=== PATIENT | male | born 1950 | race African-American/Black ===

== ENCOUNTER 2017-05-16 07:10 | Emergency (ER) | payer OTHER ==
[2017-05-16 07:17] VITALS: TEMP 98.9; BMI 32.8
[2017-05-16] MEDS ORDERED: NAPROXEN 500 MG TABLET (FP) PO ONE (07:51)
--- NOTE | 2017-05-16 07:51 | PDOC ---
History of Present Illness - General Chief Complaint: Pain Stated Complaint: TESTICULAR PAIN Time Seen by Provider: 05/16/17 07:25 History Source: Patient - History of Present Illness Initial Comments: 05/16/17 07:52 67M with pmh of HTN presents with right-sided testicular pain for 2 days and slight burn on urination. Patient complains he feels a lump on the right side. Any contact with scrotum increases the pain. Unprotected sexual activity with , no other. Increased frequency of urination. No hematuria. Denies similar events in the past. 05/16/17 07:59 Past History - Past Medical History Allergies/Adverse Reactions: Allergies Allergy/AdvReac Type Severity Reaction Status Date / Time No Known Allergies Allergy Verified 05/16/17 07:17 Home Medications: Ambulatory Orders Meclizine HCl [Antivert -] 12.5 mg PO QID PRN #28 tablet 02/23/15 Unobtainable 02/23/15 Levofloxacin [Levaquin -] 500 mg PO DAILY #10 tablet 05/16/17 Diabetes: Yes (BORDERLINE) HTN: Yes Hypercholesterolemia: Yes - Psycho/Social/Smoking Cessation Hx Anxiety: No Suicidal Ideation: No Smoking History: Never smoked Information on smoking cessation initiated: No Hx Alcohol Use: No Drug/Substance Use Hx: No Substance Use Type: None Review of Systems - Review of Systems Constitutional: No: Symptoms Reported HEENTM: No: Symptoms Reported Respiratory: No: Symptoms reported Cardiac (ROS): No: Symptoms Reported ABD/GI: No: Symptoms Reported : Yes: See HPI, Urgency, Testicular Mass, Testicular Swelling *Physical Exam - Vital Signs Last Vital Signs Temp Pulse Resp BP Pulse Ox 98.9 F 70 17 158/85 100 05/16/17 07:15 05/16/17 07:15 05/16/17 07:15 05/16/17 07:15 05/16/17 07:15 - Physical Exam General Appearance: Yes: Nourished, Appropriately Dressed. No: Apparent Distress HEENT: positive: EOMI, RICKY, Normal ENT Inspection Neck: negative: Tender Respiratory/Chest: positive: Lungs Clear, Normal Breath Sounds. negative: Chest Tender Cardiovascular: positive: Regular Rhythm, Regular Rate, S1, S2 Gastrointestinal/Abdominal: positive: Normal Bowel Sounds. negative: Tender Male Genitalia: positive: testicular tenderness (Enlarged scrotal sac). negative: discharge, testicular mass (ambiguous), hematuria ED Treatment Course - LABORATORY CBC & Chemistry Diagram: 05/16/17 07:54 05/16/17 07:54 Medical Decision Making - Medical Decision Making 05/16/17 08:02 67M with pmh of HTN presents with testicular pain and swelling for the past 2 days. orchitis vs epididimitis vs torsion Scrotum u/s pending UA + cultures CBC CMP 05/16/17 09:43 U/S positive for orchitis and Epididimytis . PAtient started on levoquin PO + Rx outpatient *DC/Admit/Observation/Transfer Diagnosis at time of Disposition: Orchitis and epididymitis - Discharge Dispostion Disposition: HOME Admit: No - Prescriptions Prescriptions: Levofloxacin [Levaquin -] 500 mg PO DAILY #10 tablet - Referrals Referrals: Dennis Hitchcock MD [Primary Care Provider] - Reagan Marie MD [Staff Physician] - - Patient Instructions Printed Discharge Instructions: DI for Epididymitis Additional Instructions: Take 600mg ibuprofen for pain when needed Take one antibiotic (Levofloxacin) each day for 10 days. Follow up with Dr. Marie.
[2017-05-16] MEDS ORDERED: NAPROXEN 500 MG TABLET (FP) ONE (07:55)
--- NOTE | 2017-05-16 08:18 | PDOC ---
Attending Attestation - Resident Resident Name: Devyn Toscano - ED Attending Attestation I have performed the following: I have examined & evaluated the patient, The case was reviewed & discussed with the resident, I agree w/resident's findings & plan, Exceptions are as noted - HPI HPI: 05/16/17 09:20 67 year old male c/ history of HTN p/w R sided testicular pain x 2 pains. Reports constant with dysuria. Reports has not been sexually active in a while and only sexually active with his . Denies hx of STDS. Report pain is constant and relieved with NSAIDS. Denies fevers, chills. - Physicial Exam PE: 05/16/17 09:50 GENERAL: Awake, alert, and fully oriented, in no acute distress. HEAD: No signs of trauma EYES: PERRLA, EOMI, sclera anicteric, conjunctiva clear ENT: Auricles normal inspection, hearing grossly normal, nares patent, oropharynx clear without exudates. NECK: Normal ROM, supple, no lymphadenopathy, JVD, or masses LUNGS: Breath sounds equal, clear to auscultation bilaterally. No wheezes, and no crackles HEART: Regular rate and rhythm, normal S1 and S2, no murmurs, rubs or gallops ABDOMEN: Soft, nontender, normoactive bowel sounds. No guarding, no rebound. No masses : Uncircumsized penis. R testicle tender to palpation. Tender at the epidydmitis. EXTREMITIES: Normal range of motion, no edema. No clubbing or cyanosis. No cords, erythema, or tenderness NEUROLOGICAL: Cranial nerves II through XII grossly intact. Normal speech, normal gait SKIN: Warm, Dry, normal turgor, no rashes or lesions noted. - Medical Decision Making 05/16/17 09:52 Vital Signs Temp Pulse Resp BP Pulse Ox 98.9 F 70 17 158/85 100 05/16/17 07:15 05/16/17 07:15 05/16/17 07:15 05/16/17 07:15 05/16/17 07:15 67 year old male p/w R testicular pain. Ultrasound demonstrates epidydmitis and orchitis. Levaquin 500 mg PO x 10 days. NSAIDS Follow up with urology.
[2017-05-16 08:31] LABS: BASOPHIL 0.6 % (0-2.0); EOSINOPHIL 0.9 % (0-4.5); MCH 30.2 pg (25.7-33.7); MCHC 32.6 g/dl (32.0-35.9); MEAN CELL VOLUME 92.6 fl (80-96); MEAN PLT VOLUME 8.4 fl (7.5-11.1); NEUTROPHILS 59.4 % (42.8-82.8); PLATELET COUNT 241 K/MM3 (134-434); RDW 13.5 % (11.9-15.9); WHITE BLOOD COUNT 10.5 K/mm3 (4.0-10.0)
[2017-05-16 08:51] LABS: ALBUMIN 3.5 g/dl (3.4-5.0); ANION GAP 5 (8-16); BILIRUBIN,TOTAL 0.5 mg/dL (0.2-1.0); CALCIUM 10.1 mg/dL (8.5-10.1); CO2 30 mmol/L (21-32); CREATININE 0.7 mg/dL (0.7-1.3); GLUCOSE,RANDOM 104 mg/dL (74-106); SGPT/ALT 24 U/L (12-78); TOT PROT 7.3 g/dl (6.4-8.2)
[2017-05-16 08:52] LABS: ALK PHOS 76 U/L (45-117)
[2017-05-16 08:53] LABS: SGOT/AST 22 U/L (15-37)
[2017-05-16 09:38] LABS: PH,URINE 6.5 (5.0-8.0); URINE APPEARANCE CLEAR; URINE BILIRUBIN NEGATIVE (NEGATIVE); URINE BLOOD 2+ (NEGATIVE); URINE COLOR YELLOW; URINE GLUCOSE (UA) NEGATIVE (NEGATIVE); URINE KETONE NEGATIVE (NEGATIVE); URINE NITRITE NEGATIVE (NEGATIVE); URINE PROTEIN NEGATIVE (NEGATIVE); URINE UROBILINOGEN 0.2 mg/dL (0.2-1.0)
[2017-05-16] MEDS ORDERED: LEVOFLOXACIN 500 MG TABLET (FP) PO ONE (09:39)
[2017-05-16 10:08] LABS: URINE LEUK ESTERASE 3+ (NEGATIVE)
[2017-05-16 10:14] LABS: URINE BACTERIA RARE /hpf (NONE SEEN); URINE MUCUS RARE; URINE RBC 21 /hpf (0-3); URINE WBC 30 /hpf (3-5)
[2017-05-16] MEDS ORDERED: LEVOFLOXACIN 500 MG TABLET (FP) ONE (10:17)
[2017-05-16 10:28] VITALS: BP 150/80; PULSE 82
== END 2017-05-16 10:28 | disposition home or self-care (01) ==
LOC: JER 07:10
DX: N45.3 Epididymo-orchitis (principal); I10 Essential (primary) hypertension; E78.00 Pure hypercholesterolemia, unspecified
CPT/HCPCS: 36415; 76870-TC; 80053; 81003; 81015; 85025; 87086; 87186; 99282-25

== ENCOUNTER 2020-06-12 05:00 | Day surgery (SDC) | payer OTHER ==
[2020-06-11 18:05] VITALS: BMI 31.4
--- NOTE | 2020-06-12 09:57 | HP ---
[facility] - Chief Complaint Chief Complaint: right knee pain - Past Medical History Allergies/Adverse Reactions: Allergies Allergy/AdvReac Type Severity Reaction Status Date / Time No Known Allergies Allergy Verified 06/11/20 17:57 - Current Medications Current Medications: Home Medications Medication Instructions Recorded Acetaminophen [Tylenol] 650 mg PO PRN 06/11/20 Amlodipine Besylate 10 mg PO DAILY 06/11/20 Atorvastatin Calcium 20 mg PO HS 06/11/20 Losartan/Hydrochlorothiazide 1 each PO DAILY 06/11/20 [Losartan-Hctz 100-12.5 mg Tab] Tolterodine Tartrate 2 mg PO DAILY 06/11/20 Oxycodone HCl/Acetaminophen 1 tab PO Q6H #15 tablet MDD 4 06/12/20 [Percocet 5-325 mg Tablet] [facility] Physical Exam - Physical Examination General Appearance: Well Nourished, Well Developed, Alert & Oriented x3 ENT: Clear Lung: Normal air movement Extremities: Other (right knee- + swelling, + ttp, decr rom, + mcmurrays, nvi) Neurological: Intact, Alert, Oriented Satellite Impression/Plan - Impression/Plan Impression: right knee internal derangement Operative Procedure: right knee arthroscopy Date to be Performed: 06/12/20
[2020-06-12] MEDS ORDERED: PROPOFOL 20 ML ONE (12:28)
[2020-06-12] MEDS ORDERED: MIDAZOLAM HCL 2 MG/2 ML SINGLE DOSE VIAL ONE (12:28)
[2020-06-12] MEDS ORDERED: LIDOCAINE 1%/EPI 1:100000 (20 ML MULTI DOSE VIAL) ONE ×2 (12:36→13:03)
[2020-06-12] MEDS ORDERED: KETOROLAC TROMETHAMINE 30 MG/1 ML VIAL ONE (13:11)
[2020-06-12] MEDS ORDERED: LIDOCAINE 1%/EPI 1:100000 (20 ML MULTI DOSE VIAL) INF ONE (13:18)
[2020-06-12] MEDS ORDERED: BUPIVACAINE HCL/PF 0.5% (5 MG/ML) 30 ML VIAL IJ ONE (13:19)
--- NOTE | 2020-06-12 13:50 | OP ---
Operative Note - Note: Operative Date: 06/12/20 ([facility]) Pre-Operative Diagnosis: right knee internal derangement Operation: right knee arthroscopy with PMM, debridement chondroplasty Post-Operative Diagnosis: Same as Pre-op Surgeon: Lopez Davis Anesthesia: General, Local Specimens Removed: shavings Estimated Blood Loss (mls): 5
[2020-06-12 15:18] VITALS: TEMP 97.6
[2020-06-12 15:34] VITALS: BP 130/74; PULSE 70
--- NOTE | 2020-06-12 21:02 | OP ---
DATE OF OPERATION: 06/12/2020 PREOPERATIVE DIAGNOSIS: Internal derangement, right knee. POSTOPERATIVE DIAGNOSIS: Internal derangement, right knee. PROCEDURE: Arthroscopy, right knee partial median meniscectomy, and chondroplasty of the patella. SURGICAL ATTENDING: Lopez Davis MD ANESTHESIA: General with LMA. CLOSURE: 4-0 nylon. COMPLICATIONS: None. CONDITION: Recovery in stable condition. DESCRIPTION OF OPERATIVE PROCEDURE: Patient taken to the operating room on June 12, 2020. General anesthesia with LMA was administered per the anesthesiologist. Right lower extremity was prepped and draped in the usual sterile fashion. Medial and lateral infrapatellar portal sites were infiltrated with 1% Xylocaine with epinephrine. Both portals were then made with a 15 blade followed by a blunt trocar. The scope trocar was placed up into the suprapatellar pouch. The knee was drained of about 40 mL of clear fluid. The knee was then inflated with a cocktail of 10 mL of 1% Xylocaine, 10 mL of 0.5% Marcaine, and 20 mL of arthroscopic saline. After allowing the anesthetic to work, the procedure was then performed. The pouch was visualized to be clean. The medial and lateral gutters were visualized to be clean. The undersurface of the patella had some "crab meat" which was debrided using the shaver as did the trochlea and was shaved as well. With valgus stress on the knee, the medial compartment was entered. The medial meniscus was found to have a tear of its posterior horn. This was debrided back to smooth and stable meniscal tissue with arthroscopic bitters and shaver. The medial femoral condyle was run and found to be basically intact as was the medial tibial plateau. There was 1 small central area in the medial femoral condyle at about 50 degrees that had no cartilage down to bone, but was left alone. At 90 degrees, the ACL was visualized and probed, found to be intact. In the figure-4 position, the lateral compartment was entered. The lateral meniscus visualized and found to be intact. Lateral femoral condyle was run and found to be intact as was the lateral tibial plateau. Knee was irrigated with copious amounts of irrigation. The fluid was drained from the knee. Portals were closed, and 20 mL of 0.5% Marcaine were infused into the knee for postoperative analgesia. Sterile pressure dressing was placed over the knee. Patient awakened from anesthesia and transferred to Recovery in stable condition. No complications. Estimated blood loss: Negligible. Janell [id number]
--- NOTE | 2020-06-19 17:48 | PATH ---
Surgical Pathology Report Patient Name: KATHIE WONG Med. Rec. #: [id number] /Age/Gender: 1950 (Age: 70) / M Account: [id number] Location: [facility] SURGICAL Taken: 06/12/2020 Received: 06/13/2020 Reported: 06/19/2020 Physicians: Lopez Davis M.D. Specimen(s) Received RIGHT KNEE SHAVINGS Clinical History Right knee tear Final Diagnosis KNEE SHAVINGS, RIGHT, ARTHROSCOPY: FRAGMENTS OF CARTILAGE, DENSE FIBROCONNECTIVE TISSUE, ADIPOSE TISSUE, AND REACTIVE SYNOVIUM. Electronically Signed Mary Kay Vega M.D. Gross Description Received in formalin labeled "right knee shavings," is a 3.3 x 2.6 x 0.3 cm aggregate of arce-yellow soft tissue fragments admixed with blood clot. The formalin is filtered and the specimen is entirely submitted in one cassette. 06/14/2020 [facility]06/14/2020
== END 2020-06-12 15:43 | disposition home or self-care (01) ==
LOC: JASU-SURG 05:00
PROVIDERS: ATTEND Orthopaedic Surgery
PROC: 0SBC4ZZ Excision of Right Knee Joint, Percutaneous Endoscopic Approach (ICD-10-PCS; 2020-06-12)
PROC: 0SBC4ZZ Excision of Right Knee Joint, Percutaneous Endoscopic Approach (ICD-10-PCS; principal; 2020-06-12 12:00)
DX: M23.221 Derangement of posterior horn of medial meniscus due to old tear or injury, right knee (principal)
CPT/HCPCS: 29881; G0289; 88304-TC; 94760

== ENCOUNTER 2021-04-10 05:20 | Day surgery (SDC) | payer OTHER ==
[2021-04-09 09:41] VITALS: BMI 33.9
[2021-04-10 11:29] VITALS: TEMP 97.6
[2021-04-10 12:28] VITALS: BP 159/81; PULSE 60
== END 2021-04-10 12:33 | disposition home or self-care (01) ==
LOC: JASU-ENDO 05:20
PROVIDERS: ATTEND Internal Medicine Gastroenterology
PROC: 0DBM8ZX Excision of Descending Colon, Via Natural or Artificial Opening Endoscopic, Diagnostic (ICD-10-PCS; 2021-04-10)
PROC: 0DB78ZX Excision of Stomach, Pylorus, Via Natural or Artificial Opening Endoscopic, Diagnostic (ICD-10-PCS; 2021-04-10)
PROC: 0DBK8ZX Excision of Ascending Colon, Via Natural or Artificial Opening Endoscopic, Diagnostic (ICD-10-PCS; principal; 2021-04-10 10:00)
DX: Z12.11 Encounter for screening for malignant neoplasm of colon (principal); D12.2 Benign neoplasm of ascending colon; D12.4 Benign neoplasm of descending colon; K29.50 Unspecified chronic gastritis without bleeding; K59.00 Constipation, unspecified; R10.13 Epigastric pain; I10 Essential (primary) hypertension; D11.9 Benign neoplasm of major salivary gland, unspecified; N40.0 Benign prostatic hyperplasia without lower urinary tract symptoms
CPT/HCPCS: 82962; 88305-TC; 88342-TC

== ENCOUNTER 2021-10-26 08:59 | Observation (INO) | payer OTHER ==
[2021-10-26 10:54] LABS: CHLORIDE 104 mmol/L (98-107); SODIUM 140 mmol/L (136-145)
[2021-10-26 10:56] LABS: ALBUMIN 3.6 g/dl (3.4-5.0)
[2021-10-26 10:57] LABS: ANION GAP 6 MMOL/L (8-16); BLOOD UREA NITROGEN 12.1 mg/dL (7-18); CALCIUM 9.2 mg/dL (8.5-10.1); CO2 30 mmol/L (21-32); GLUCOSE,RANDOM 124 mg/dL (74-106)
[2021-10-26 11:00] LABS: CHOLESTEROL 131 mg/dL (50-200); CREATININE 0.7 mg/dL (0.55-1.3); SGOT/AST 25 U/L (15-37); SGPT/ALT 22 U/L (13-61); TRIGLYCERIDES 47 mg/dL (0-150)
[2021-10-26 11:01] LABS: BILIRUBIN,TOTAL 0.4 mg/dL (0.2-1); LDL CHOLESTEROL (ONLY SJRH) 76 mg/dL (5-100); TOT PROT 6.8 g/dl (6.4-8.2)
[2021-10-26 11:02] LABS: ALK PHOS 68 U/L (45-117)
[2021-10-26 11:03] LABS: HDL CHOLESTEROL 47 mg/dL (40-60)
[2021-10-26 11:08] LABS: ACTIVATED PTT 22.3 SECONDS (25.2-36.5); INR 1.01 (0.83-1.09); PROTHROMBIN TIME (PATIENT) 11.6 SEC (9.7-13.0)
[2021-10-26] MEDS ORDERED: ASPIRIN 81 MG CHEWABLE TABLETS PO ONE (12:06)
[2021-10-26] MEDS ORDERED: ASPIRIN 81 MG CHEWABLE TABLETS ONE ×2 (12:33→12:36)
[2021-10-26 12:41] LABS: BASO % 0.7 % (0-2.0); EOS % 1.8 % (0-4.5); HEMATOCRIT 42.2 % (35.4-49); HEMOGLOBIN 13.8 GM/dL (11.7-16.9); LYMPH % 34.9 % (8-40); MCH 30.2 pg (25.7-33.7); MCHC 32.6 g/dl (32.0-35.9); MEAN CELL VOLUME 92.6 fl (80-96); MEAN PLT VOLUME 10.6 fl (7.5-11.1); MONO % 10.1 % (3.8-10.2); NEUT % 52.5 % (42.8-82.8); PLATELET COUNT 175 10^3/uL (134-434); RBC 4.56 M/mm3 (4.00-5.60); RDW 14.1 % (11.9-15.9); WHITE BLOOD COUNT 5.3 K/mm3 (4.0-10.0)
[2021-10-26 13:01] LABS: PH,URINE 5.5 (5.0-8.0); URINE APPEARANCE CLEAR; URINE BILIRUBIN NEGATIVE (NEGATIVE); URINE COLOR YELLOW; URINE GLUCOSE (UA) NEGATIVE (NEGATIVE); URINE KETONE NEGATIVE (NEGATIVE); URINE LEUK ESTERASE NEGATIVE (NEGATIVE); URINE NITRITE NEGATIVE (NEGATIVE); URINE PROTEIN NEGATIVE (NEGATIVE); URINE UROBILINOGEN 0.2 mg/dL (0.2-1.0)
[2021-10-26 13:46] LABS: PLATELET ESTIMATE NORMAL
[2021-10-26] MEDS ORDERED: LOSARTAN 50MG/HCTZ 12.5MG 1 TAB PO ONE (14:29)
[2021-10-26] MEDS ORDERED: ACETAMINOPHEN 325 MG TABLET (FP) PO PRN (16:14)
[2021-10-26] MEDS ORDERED: ONDANSETRON 4 MG/2 ML VIAL IVPUSH PRN (16:14)
[2021-10-26] MEDS: INSULIN (NOVOLOG) ASPART 100 UNITS/ML 10ML VIAL SQ SCH (17:51)
[2021-10-27 01:51] VITALS: BMI 32.5
[2021-10-27] MEDS: INSULIN (NOVOLOG) ASPART 100 UNITS/ML 10ML VIAL SQ SCH ×2 (07:02)
[2021-10-27 08:12] LABS: BASO % 0.4 % (0-2.0); EOS % 2.2 % (0-4.5); HEMATOCRIT 43.5 % (35.4-49); HEMOGLOBIN 14.7 GM/dL (11.7-16.9); LYMPH % 43.9 % (8-40); MCH 31.2 pg (25.7-33.7); MCHC 33.8 g/dl (32.0-35.9); MEAN CELL VOLUME 92.1 fl (80-96); MEAN PLT VOLUME 9.1 fl (7.5-11.1); MONO % 9.7 % (3.8-10.2); NEUT % 43.8 % (42.8-82.8); PLATELET COUNT 193 10^3/uL (134-434); RBC 4.72 M/mm3 (4.00-5.60); RDW 14.1 % (11.9-15.9); WHITE BLOOD COUNT 5.7 K/mm3 (4.0-10.0)
[2021-10-27 08:58] LABS: CALCIUM 9.6 mg/dL (8.5-10.1)
[2021-10-27 08:59] LABS: BLOOD UREA NITROGEN 13.5 mg/dL (7-18)
[2021-10-27 09:02] LABS: CREATININE 0.8 mg/dL (0.55-1.3)
[2021-10-27] MEDS: amLODIPine BESYLATE 10 MG TABLET (FP) PO SCH (09:34)
[2021-10-27] MEDS: LOSARTAN POTASSIUM 50 MG TABLET PO SCH (09:35)
[2021-10-27] MEDS: ASPIRIN COATED 81 MG TABLET.EC PO SCH (09:35)
[2021-10-27] MEDS: HYDROCHLOROTHIAZIDE 25 MG TABLET (FP) PO SCH (09:35)
[2021-10-27] MEDS: INSULIN SLIDING SCALE (NOVOLOG) 1 VIAL SQ SCH ×2 (12:09→18:00)
[2021-10-27] MEDS: ENOXAPARIN NA (PORCINE) 40 MG/0.4 ML DISP.SYRIN SQ SCH (14:07)
[2021-10-27] MEDS ORDERED: ATORVASTATIN CA 20 MG TABLET (FP) PO SCH (22:00)
[2021-10-27] MEDS ORDERED: ATORVASTATIN CA 40 MG TABLET (FP) PO SCH ×2 (22:00)
[2021-10-28 05:59] VITALS: TEMP 98
[2021-10-28] MEDS: INSULIN SLIDING SCALE (NOVOLOG) 1 VIAL SQ SCH ×2 (07:38→11:21)
[2021-10-28 09:06] LABS: BASO % 0.5 % (0-2.0); HEMATOCRIT 44.5 % (35.4-49); HEMOGLOBIN 14.9 GM/dL (11.7-16.9); LYMPH % 38.7 % (8-40); MCH 30.8 pg (25.7-33.7); MCHC 33.6 g/dl (32.0-35.9); MEAN CELL VOLUME 91.6 fl (80-96); MEAN PLT VOLUME 8.8 fl (7.5-11.1); MONO % 11.6 % (3.8-10.2); NEUT % 47.2 % (42.8-82.8); PLATELET COUNT 220 10^3/uL (134-434); RBC 4.86 M/mm3 (4.00-5.60); RDW 13.6 % (11.9-15.9); WHITE BLOOD COUNT 5.3 K/mm3 (4.0-10.0)
[2021-10-28 09:08] LABS: ALBUMIN 3.5 g/dl (3.4-5.0); BLOOD UREA NITROGEN 13.7 mg/dL (7-18); CALCIUM 9.7 mg/dL (8.5-10.1)
[2021-10-28 09:11] LABS: CREATININE 0.9 mg/dL (0.55-1.3)
[2021-10-28 09:13] LABS: BILIRUBIN,TOTAL 0.8 mg/dL (0.2-1); TOT PROT 6.7 g/dl (6.4-8.2)
[2021-10-28] MEDS: HYDROCHLOROTHIAZIDE 25 MG TABLET (FP) PO SCH (09:16)
[2021-10-28] MEDS: LOSARTAN POTASSIUM 50 MG TABLET PO SCH (09:16)
[2021-10-28] MEDS: ASPIRIN COATED 81 MG TABLET.EC PO SCH (09:16)
[2021-10-28] MEDS: amLODIPine BESYLATE 10 MG TABLET (FP) PO SCH (09:16)
[2021-10-28] MEDS: ENOXAPARIN NA (PORCINE) 40 MG/0.4 ML DISP.SYRIN SQ SCH (09:19)
[2021-10-28 09:41] VITALS: BP 142/83; PULSE 65
== END 2021-10-28 17:01 | disposition home or self-care (01) ==
LOC: JER 08:59 → JERBED 13:26 → J4W 23:21
PROVIDERS: ADMIT Internal Medicine
DX: G45.9 Transient cerebral ischemic attack, unspecified (principal); I25.10 Atherosclerotic heart disease of native coronary artery without angina pectoris; I11.9 Hypertensive heart disease without heart failure; R42 Dizziness and giddiness; I10 Essential (primary) hypertension; E78.5 Hyperlipidemia, unspecified; E11.9 Type 2 diabetes mellitus without complications; E66.8 Other obesity; Z68.32 Body mass index [BMI] 32.0-32.9, adult; Z87.891 Personal history of nicotine dependence; Z29.9 Encounter for prophylactic measures, unspecified
CPT/HCPCS: 36415; 70450-TC; 70551-TC; 80048; 80053; 80061; 81003; 82550; 82607; 82746; 82962; 83036; 84443; 84484; 85025; 85610; 85730; 86850; 86900; 86901; 93005; 93010; 93306-TC; 93880-TC; 97116-GP; 97161-GP; 99285-25; C9803; G0378; U0003; U0005

== ENCOUNTER 2024-02-24 04:18 | Day surgery (SDC) | payer OTHER ==
[2024-02-21 12:50] VITALS: BMI 33.9
[2024-02-24 08:52] VITALS: TEMP 97.8
[2024-02-24 09:14] VITALS: BP 123/51; PULSE 59; RESP 20
== END 2024-02-24 06:30 | disposition home or self-care (01) ==
LOC: JASU-ENDO 04:18
PROVIDERS: ATTEND Internal Medicine Gastroenterology
PROC: 0DBL8ZX Excision of Transverse Colon, Via Natural or Artificial Opening Endoscopic, Diagnostic (ICD-10-PCS; 2024-02-24)
PROC: 0DBH8ZX Excision of Cecum, Via Natural or Artificial Opening Endoscopic, Diagnostic (ICD-10-PCS; principal; 2024-02-24 08:00)
DX: Z12.11 Encounter for screening for malignant neoplasm of colon (principal); D12.0 Benign neoplasm of cecum; D12.3 Benign neoplasm of transverse colon; Z86.010 Personal history of colon polyps
CPT/HCPCS: 82962; 88305-TC

== ENCOUNTER 2024-07-28 05:55 | Inpatient (IN) | payer MEDICARE, OTHER ==
[2024-07-28] MEDS: SODIUM CHLORIDE 1,000 ML IV STA (07:00)
[2024-07-28 07:19] LABS: BASO % 0.4 % (0-2.0); EOS % 0.8 % (0-4.5); HEMATOCRIT 37.7 % (35.4-49); HEMOGLOBIN 12.9 GM/dL (11.7-16.9); LYMPH % 24.6 % (8-40); MCH 31.7 pg (25.7-33.7); MCHC 34.2 g/dl (32.0-35.9); MEAN CELL VOLUME 92.7 fl (80-96); MEAN PLT VOLUME 7.7 fl (7.5-11.1); MONO % 7.5 % (3.8-10.2); NEUT % 66.7 % (42.8-82.8); PLATELET COUNT 224 10^3/uL (134-434); RBC 4.06 M/mm3 (4.00-5.60); RDW 14.5 % (11.9-15.9); WHITE BLOOD COUNT 7.6 K/mm3 (4.0-10.0)
[2024-07-28 07:36] LABS: POTASSIUM 3.9 mmol/L (3.5-5.1)
[2024-07-28 07:38] LABS: ALBUMIN 3.2 g/dl (3.4-5.0); CALCIUM 8.5 mg/dL (8.5-10.1)
[2024-07-28 07:39] LABS: BLOOD UREA NITROGEN 14.2 mg/dL (7-18); MAGNESIUM 1.5 mg/dL (1.8-2.4)
[2024-07-28 07:41] LABS: PHOSPHOROUS 1.6 mg/dL (2.5-4.9)
[2024-07-28 07:42] LABS: CREATININE 0.7 mg/dL (0.55-1.3)
[2024-07-28 07:43] LABS: BILIRUBIN,TOTAL 0.3 mg/dL (0.2-1); TOT PROT 6.2 g/dl (6.4-8.2)
[2024-07-28 07:47] LABS: N-TERMINAL BNP 668.1 pg/ml (5-125)
[2024-07-28 07:51] LABS: INR 1.02 (0.83-1.09); PROTHROMBIN TIME (PATIENT) 11.7 SEC (9.7-13.0)
[2024-07-28 07:54] LABS: ACTIVATED PTT 26.6 SECONDS (25.2-36.5)
[2024-07-28 08:05] LABS: PH,URINE 6.5 (5.0-8.0); URINE APPEARANCE CLEAR; URINE BILIRUBIN NEGATIVE (NEGATIVE); URINE COLOR YELLOW; URINE GLUCOSE (UA) NEGATIVE (NEGATIVE); URINE KETONE NEGATIVE (NEGATIVE); URINE LEUK ESTERASE NEGATIVE (NEGATIVE); URINE NITRITE NEGATIVE (NEGATIVE); URINE PROTEIN NEGATIVE (NEGATIVE); URINE UROBILINOGEN 0.2 mg/dL (0.2-1.0)
[2024-07-28] MEDS ORDERED: dilTIAZem HCL 125 MG/25 ML - 25 ML VIAL ONE (08:24)
[2024-07-28] MEDS: dilTIAZem HCL 50 MG/10 ML - 10 ML VIAL IVPUSH ONE (08:35)
[2024-07-28] MEDS ORDERED: MAGNESIUM SULFATE IN WATER 2 GM/50 ML IVPB IVPB ONE (09:03)
[2024-07-28] MEDS: MAGNESIUM SULFATE IN WATER 2 GM/50 ML IVPB IVPB ONE (09:27)
[2024-07-28] MEDS: MAGNESIUM SULF 50% (8.12 MEQ/2 ML-1 GM VIAL) IVPB ONE (09:29)
[2024-07-28 09:53] LABS: POTASSIUM 3.7 mmol/L (3.5-5.1)
[2024-07-28 09:54] LABS: CALCIUM 9.2 mg/dL (8.5-10.1)
[2024-07-28 09:55] LABS: BLOOD UREA NITROGEN 14.6 mg/dL (7-18); MAGNESIUM 1.8 mg/dL (1.8-2.4)
[2024-07-28] MEDS ORDERED: ACETAMINOPHEN INJECTION 100 ML ONE (09:55)
[2024-07-28 09:58] LABS: CREATININE 0.8 mg/dL (0.55-1.3)
[2024-07-28] MEDS: ACETAMINOPHEN 1000 MG/100 ML BAG IVPB ONE (10:30)
[2024-07-28 16:51] VITALS: BMI 34.0
[2024-07-28 19:27] LABS: HIV INTERPRETATION NEGATIVE (NEGATIVE)
[2024-07-28] MEDS: GABAPENTIN 400 MG CAPSULE PO SCH (21:04)
[2024-07-28] MEDS: amLODIPine BESYLATE 10 MG TABLET (FP) PO SCH (21:04)
[2024-07-28] MEDS: ATORVASTATIN CA 40 MG TABLET (FP) PO SCH (21:04)
[2024-07-28] MEDS: FLU VACCINE (FLULAVAL) PF 45 MCG/0.5 ML SYRINGE 2024-2025 IM ONE (21:06)
[2024-07-28] MEDS: ACETAMINOPHEN 500 MG TABLET (FP) PO ONE (23:15)
[2024-07-29] MEDS: ACETAMINOPHEN 500 MG TABLET (FP) PO ONE (07:45)
[2024-07-29 07:49] LABS: BASO % 0.3 % (0-2.0); HEMATOCRIT 37.4 % (35.4-49); HEMOGLOBIN 12.5 GM/dL (11.7-16.9); LYMPH % 26.5 % (8-40); MCH 31.2 pg (25.7-33.7); MCHC 33.3 g/dl (32.0-35.9); MEAN CELL VOLUME 93.7 fl (80-96); MEAN PLT VOLUME 7.8 fl (7.5-11.1); MONO % 9.2 % (3.8-10.2); PLATELET COUNT 224 10^3/uL (134-434); RDW 14.3 % (11.9-15.9); WHITE BLOOD COUNT 8.4 K/mm3 (4.0-10.0)
[2024-07-29 07:59] LABS: POTASSIUM 4.2 mmol/L (3.5-5.1)
[2024-07-29 08:03] LABS: ALBUMIN 3.3 g/dl (3.4-5.0); BLOOD UREA NITROGEN 12.1 mg/dL (7-18); CALCIUM 9.7 mg/dL (8.5-10.1)
[2024-07-29 08:07] LABS: CREATININE 0.8 mg/dL (0.55-1.3)
[2024-07-29 08:08] LABS: BILIRUBIN,TOTAL 0.5 mg/dL (0.2-1); TOT PROT 6.2 g/dl (6.4-8.2)
[2024-07-29] MEDS: ASPIRIN COATED 81 MG TABLET.EC PO SCH (09:57)
[2024-07-29] MEDS: metoPROLOL SUCCINATE 25 MG TAB.SR.24H (FP) PO SCH (09:57)
[2024-07-29] MEDS: APIXABAN 5 MG TABLET PO SCH (09:57)
[2024-07-29] MEDS: HYDROCHLOROTHIAZIDE 25 MG TABLET (FP) PO SCH (09:58)
[2024-07-29] MEDS: LOSARTAN POTASSIUM 50 MG TABLET PO SCH (09:58)
[2024-07-29] MEDS ORDERED: ENOXAPARIN NA (PORCINE) 40 MG/0.4 ML DISP.SYRIN SQ SCH (10:00)
[2024-07-29] MEDS ORDERED: PATIENT'S OWN MEDICATION (NON-FORMULARY) (Losartan/Hydrochlorothiazide [Losartan-Hctz 100- PO SCH (10:00)
[2024-07-29] MEDS: ACETAMINOPHEN 325 MG TABLET (FP) PO PRN (18:51)
[2024-07-29] MEDS: MELATONIN 5 MG TABLETS PO PRN (22:20)
[2024-07-30 07:21] LABS: BASO % 0.4 % (0-2.0); EOS % 1.5 % (0-4.5); HEMATOCRIT 41.4 % (35.4-49); HEMOGLOBIN 13.4 GM/dL (11.7-16.9); LYMPH % 28.3 % (8-40); MCH 30.5 pg (25.7-33.7); MCHC 32.4 g/dl (32.0-35.9); MEAN CELL VOLUME 93.9 fl (80-96); MEAN PLT VOLUME 8.4 fl (7.5-11.1); MONO % 7.3 % (3.8-10.2); NEUT % 62.5 % (42.8-82.8); PLATELET COUNT 247 10^3/uL (134-434); RBC 4.41 M/mm3 (4.00-5.60); RDW 14.3 % (11.9-15.9); WHITE BLOOD COUNT 8.5 K/mm3 (4.0-10.0)
[2024-07-30 07:31] LABS: POTASSIUM 4.2 mmol/L (3.5-5.1)
[2024-07-30 07:34] LABS: ALBUMIN 3.6 g/dl (3.4-5.0); BLOOD UREA NITROGEN 11.5 mg/dL (7-18); CALCIUM 9.9 mg/dL (8.5-10.1)
[2024-07-30 07:37] LABS: BILIRUBIN,TOTAL 0.5 mg/dL (0.2-1); CREATININE 0.9 mg/dL (0.55-1.3)
[2024-07-30] MEDS: metoPROLOL SUCCINATE 25 MG TAB.SR.24H (FP) PO SCH (10:28)
[2024-07-30] MEDS: SPIRONOLACTONE 25 MG TABLET PO SCH (10:32)
[2024-07-30] MEDS: INSULIN ASPART SLIDING SCALE (NOVOLOG) 1 VIAL SQ SCH (21:48)
[2024-07-31 08:15] LABS: BASO % 0.4 % (0-2.0); EOS % 2.1 % (0-4.5); HEMATOCRIT 42.4 % (35.4-49); HEMOGLOBIN 14.4 GM/dL (11.7-16.9); LYMPH % 30.8 % (8-40); MCH 31.4 pg (25.7-33.7); MCHC 33.9 g/dl (32.0-35.9); MEAN CELL VOLUME 92.7 fl (80-96); MEAN PLT VOLUME 8.2 fl (7.5-11.1); MONO % 9.1 % (3.8-10.2); NEUT % 57.6 % (42.8-82.8); PLATELET COUNT 259 10^3/uL (134-434); RBC 4.57 M/mm3 (4.00-5.60); RDW 14.3 % (11.9-15.9); WHITE BLOOD COUNT 7.5 K/mm3 (4.0-10.0)
[2024-07-31 08:37] LABS: POTASSIUM 5.2 mmol/L (3.5-5.1)
[2024-07-31 08:40] LABS: CALCIUM 10.4 mg/dL (8.5-10.1)
[2024-07-31 08:41] LABS: ALBUMIN 3.6 g/dl (3.4-5.0); BLOOD UREA NITROGEN 13.2 mg/dL (7-18)
[2024-07-31 08:45] LABS: BILIRUBIN,TOTAL 0.5 mg/dL (0.2-1); CREATININE 0.9 mg/dL (0.55-1.3)
[2024-07-31 09:13] VITALS: BP 129/82; PULSE 83; RESP 18; TEMP 97.7
[2024-07-31] MEDS ORDERED: SENNOSIDES 8.6MG TABLET (FP) PO PRN (10:35)
[2024-07-31] MEDS: POLYETHYLENE GLYCOL (HEALTHYLAX) 3350 17 GM PACKET PO SCH (11:16)
== END 2024-07-31 14:00 | disposition home or self-care (01) | DRG 309 ==
LOC: JER 05:55 → JERBED 08:47 → J4W 15:24
PROVIDERS: ADMIT Internal Medicine; ATTEND Internal Medicine
DX: I48.91 Unspecified atrial fibrillation (principal); I50.30 Unspecified diastolic (congestive) heart failure; R55 Syncope and collapse; E11.9 Type 2 diabetes mellitus without complications; N40.0 Benign prostatic hyperplasia without lower urinary tract symptoms; I11.0 Hypertensive heart disease with heart failure; N45.3 Epididymo-orchitis; G43.909 Migraine, unspecified, not intractable, without status migrainosus; G25.81 Restless legs syndrome; Z86.73 Personal history of transient ischemic attack (TIA), and cerebral infarction without residual deficits
CPT/HCPCS: 0241U-QW; 36415; 70450-TC; 71045-TC-FY; 80048; 80053; 81003; 82962; 83036; 83735; 83880; 84100; 84443; 84484; 85025; 85610; 85730; 86803; 87086; 87389; 90656; 93005; 93010; 93306-TC; 93880-TC; 99285-25; G0008; J0131